=== PATIENT | female | born 1955 | race Caucasian/White ===

== ENCOUNTER 2018-04-20 09:08 | Emergency (ER) | payer OTHER | END 2018-04-20 11:26 | disposition home or self-care (01) | LOC: FTE 09:08 | DX: J32.9 Chronic sinusitis, unspecified (principal); I10 Essential (primary) hypertension; J40 Bronchitis, not specified as acute or chronic; Z79.82 Long term (current) use of aspirin | CPT/HCPCS: 71045; 93005; 99284-25 ==

== ENCOUNTER 2018-05-30 08:24 | Emergency (ER) | payer OTHER ==
[2018-05-30 10:04] LABS: URINE BLOOD (Dip) POC Negative (NEGATIVE); URINE GLUCOSE (Dip) POC Negative (NEGATIVE); URINE KETONES (Dip) POC Negative (NEGATIVE); URINE LEUKOCYTE EST (Dip) POC Negative (NEGATIVE); URINE NITRITE (Dip) POC Negative (NEGATIVE); URINE TOTAL PROTEIN POC Negative (NEGATIVE)
== END 2018-05-30 10:30 | disposition home or self-care (01) ==
LOC: FTE 08:24
DX: N81.10 Cystocele, unspecified (principal); E11.9 Type 2 diabetes mellitus without complications; Z79.82 Long term (current) use of aspirin
CPT/HCPCS: 81003; 99282